=== PATIENT | female | born 1995 | race Caucasian/White ===

== ENCOUNTER 2022-05-29 06:19 | Inpatient (IN) ==
[2022-05-29] MEDS ORDERED: ANCEF VIAL 1 GRAM ONE (06:26)
[2022-05-29] MEDS ORDERED: NS 100 ML IV 100 ML ONE (06:26)
[2022-05-29] MEDS ORDERED: LR 1,000 ML IV 1,000 ML IV ONE (06:28)
[2022-05-29] MEDS ORDERED: ANCEF VIAL 1 GRAM IVP ONE (06:57)
[2022-05-29] MEDS ORDERED: D5 1/2 NS 1,000 ML 1,000 ML IV SCH (06:57)
[2022-05-29] MEDS ORDERED: ZOFRAN INJ 4 MG VIAL ONE ×2 (07:02→08:31)
[2022-05-29] MEDS ORDERED: PEPCID 20 MG VIAL ONE (07:05)
[2022-05-29] MEDS ORDERED: DILAUDID INJ ONE (07:18)
[2022-05-29] MEDS ORDERED: D5 1/2 NS 1,000 mL + PITOCIN 20 UNITS/L IV 20 UNITS/1,000 ML BAG IV ONE (07:42)
[2022-05-29] MEDS ORDERED: KETAMINE HCL ONE (07:54)
[2022-05-29] MEDS ORDERED: PITOCIN ONE (08:03)
[2022-05-29] MEDS ORDERED: VERSED ONE (08:03)
[2022-05-29] MEDS ORDERED: DIPRIVAN VIAL 20 ML ONE ×2 (08:12→08:24)
[2022-05-29] MEDS ORDERED: TORADOL 30 MG VIAL ONE (08:52)
[2022-05-29] MEDS: HEMABATE IM ONE ×2 (09:29→09:32)
[2022-05-29] MEDS ORDERED: BENADRYL INJ 50 MG VIAL IVP PRN (09:32)
[2022-05-29] MEDS ORDERED: REGLAN INJ 10 MG VIAL IVP PRN (09:32)
[2022-05-29] MEDS ORDERED: PERCOCET TAB 5/325 MG PO PRN (09:32)
[2022-05-29] MEDS ORDERED: TORADOL 30 MG VIAL IVP PRN (09:32)
[2022-05-29] MEDS ORDERED: ZOFRAN INJ 4 MG VIAL IVP PRN (09:32)
[2022-05-29] MEDS ORDERED: ADACEL or BOOSTRIX TDaP VACCINE IM ONE (09:32)
[2022-05-29] MEDS ORDERED: MYLICON TAB 80 MG CHEW PO PRN (09:32)
[2022-05-29] MEDS ORDERED: NARCAN INJ IVP PRN (09:32)
[2022-05-29] MEDS ORDERED: D5 1/2 NS 1,000 ML 1,000 ML with PITOCIN 20 UNITS IV SCH ×2 (10:00)
[2022-05-30 05:01] LABS: HEMATOCRIT 24.8 % (36.0-47.0)
[2022-05-30 05:02] LABS: HEMOGLOBIN 8.4 g/dL (12.0-16.0)
[2022-05-30] MEDS ORDERED: MOTRIN TAB 800 MG PO PRN (07:02)
[2022-05-30] MEDS: PRENATAL PLUS PO SCH (08:20)
[2022-05-30] MEDS: PROTONIX TAB 40 MG PO SCH (08:20)
[2022-05-30] MEDS: COLACE CAP 100 MG PO SCH ×2 (08:20→20:09)
[2022-05-30] MEDS: PERCOCET TAB 5/325 MG PO PRN ×4 (08:23→23:29)
[2022-05-30] MEDS: BACTROBAN TOPICAL OINT TOP SCH ×2 (14:10→21:05)
[2022-05-30] MEDS: FERROUS GLUCONATE PO SCH (16:24)
[2022-05-31] MEDS: FERROUS GLUCONATE PO SCH (06:09)
[2022-05-31] MEDS: BACTROBAN TOPICAL OINT TOP SCH ×2 (06:09→13:30)
[2022-05-31] MEDS ORDERED: DEPO-PROVERA CONTRACEPTIVE INJ IM ONE (06:21)
[2022-05-31] MEDS: PROTONIX TAB 40 MG PO SCH (08:27)
[2022-05-31] MEDS: COLACE CAP 100 MG PO SCH (08:27)
[2022-05-31] MEDS: PRENATAL PLUS PO SCH (08:27)
[2022-05-31] MEDS ORDERED: ZOFRAN TAB 4 MG PO ONE (08:32)
[2022-05-31 12:49] VITALS: BP 130/60
[2022-05-31] MEDS: PERCOCET TAB 5/325 MG PO PRN (13:30)
== END 2022-05-31 14:30 | disposition home or self-care (01) | DRG 787 ==
LOC: LD 06:19 → MED/SURG 09:37
PROVIDERS: ADMIT Specialist; ATTEND Specialist
DX: Z01.818 Encounter for other preprocedural examination; K21.9 Gastro-esophageal reflux disease without esophagitis; D62 Acute posthemorrhagic anemia; O99.613 Diseases of the digestive system complicating pregnancy, third trimester; Z37.0 Single live birth; Z3A.38 38 weeks gestation of pregnancy; Z20.822 Contact with and (suspected) exposure to COVID-19; O34.211 Maternal care for low transverse scar from previous cesarean delivery; N85.8 Other specified noninflammatory disorders of uterus; Z01.812 Encounter for preprocedural laboratory examination